=== PATIENT | male | born 1950 | race Caucasian/White ===

== ENCOUNTER 2022-08-30 11:06 | Day surgery (SDC) | payer OTHER, SELFPAY ==
[2022-08-30] MEDS: LACTATED RINGERS 1,000 ML 100 ML IV (12:42)
[2022-08-30 12:52] VITALS: BP 168/99; PULSE 105; RESP 18; TEMP 36.6; O2SAT 99; BMI 25.8
--- NOTE | 2022-08-30 13:30 | P.HP_ITS ---
History of Present Illness History of Present Illness Date Patient Seen: 08/30/22 Time Patient Seen: 13:30 Chief complaint: SDC Narrative: Marty is a 71-year-old man who is here for a colonoscopy. He has never had one before. No family history of colon cancer. [facility] Social History household members: spouse Smoking Status: Current some day smoker alcohol intake: current Meds Home Medications and Allergies Home Medications Medication Instructions Recorded Confirmed Type Baby Aspirin 81 mg DAILY 08/30/22 08/30/22 History amlodipine-benazepril 10 mg PO DAILY 08/30/22 08/30/22 History atorvastatin 0.4 mg PO DAILY 08/30/22 08/30/22 History lamotrigine 100 mg PO DAILY 08/30/22 08/30/22 History tamsulosin 0.4 mg PO DAILY 08/30/22 08/30/22 History Allergies Allergy/AdvReac Type Severity Reaction Status Date / Time No Known Drug Allergies Allergy Verified 08/30/22 12:22 Exam Vital Signs (past 8 hours): - 08/30/22 12:52 Temperature 98 F Pulse Rate 105 H Respiratory Rate 18 Blood Pressure 168/99 H Pulse Oximetry 99 Oxygen Delivery Method Room Air Oxygen Delivery Method Room Air Const General: healthy appearing Assessment & Plan Assessment and plan (1) Colon cancer screening: Status: Acute Plan We reviewed the risks and benefits of colonoscopy for colon cancer screening and he would like to proceed.
--- NOTE | 2022-08-30 13:53 | PM.OP.COLON ---
Operative Date/Time/Diagnoses Date of procedure: 08/30/22 Time of procedure: 13:53 Pre-op diagnosis: Colon cancer screening Post-op diagnosis: same Procedure & Clinicians Study performed: Colonoscopy Same procedure as scheduled: Yes Surgeon: Shoaib La Procedure Notes Procedure in detail: Surgeon: Shoaib La MD Anesthesia: Geronimo Cool CRNA Procedure: The patient was brought to the endoscopy suite, placed in left lateral decubitus position. The patient was connected to monitoring devices. A time-out was performed. Sedation was administered. Once the patient was adequately sedated, a digital rectal exam was performed and was normal. The scope was then inserted and advanced to the cecum where the appendiceal orifice was identified and photographed. The scope was then slowly withdrawn over greater than 6 minutes. The mucosa was thoroughly inspected. There were some scattered sigmoid diverticulosis but no polyps. The scope was retroflexed in the rectum. No other abnormalities were seen. The scope was straightened and removed. The patient was awakened and brought to recovery. Scope withdrawal time: 9 minutes Sedation time: 13 minutes EBL: 0 Findings: Scattered sigmoid diverticulosis Post-procedure Recommendations: Colonoscopy in 10 years Disposition: PACU
[2022-08-30 13:55] VITALS: BP 99/70; PULSE 77; RESP 14; TEMP 36.2; O2SAT 94
[2022-08-30 14:00] VITALS: BP 107/72; PULSE 76; RESP 12; O2SAT 94
--- NOTE | 2022-08-30 14:02 | SUR.PHASEI ---
Received to PACu after MAC. Report from LEONA Pino and IAIN Melton.
[2022-08-30 14:05] VITALS: BP 122/76; PULSE 70; RESP 12; O2SAT 96
[2022-08-30 14:10] VITALS: BP 140/95; PULSE 80; RESP 12; TEMP 36.7; O2SAT 99
[2022-08-30 14:11] VITALS: BP 161/94; PULSE 80; RESP 12; TEMP 36.7; O2SAT 99
== END 2022-08-30 14:20 | disposition home or self-care (01) ==
PROVIDERS: Referring Provider Surgery; Visit Provider Surgery
PROC: 0DJD8ZZ Inspection of Lower Intestinal Tract, Via Natural or Artificial Opening Endoscopic (ICD-10-PCS; CPT 45378; principal; 2022-08-30 12:45)
DX: Z12.11 Encounter for screening for malignant neoplasm of colon (principal); K57.30 Diverticulosis of large intestine without perforation or abscess without bleeding
CPT/HCPCS: G0121; J2704

== ENCOUNTER → 2023-07-23 14:51 | Outpatient (CLI) | payer MEDICARE, SELFPAY ==
[2023-07-23 15:30] LABS: Hematocrit 38.7 % (41-53); Hemoglobin 12.8 g/dL (13.5-17.5); Mean Corpuscular HGB Conc 33.1 % (30-36); Mean Corpuscular Hemoglobin 30.4 PG (26-34); Mean Corpuscular Volume 91.6 fL (80-100); Platelet Count 202 X10^3/uL (150-400); Red Blood Cell Count 4.22 X10^6/uL (4.5-5.9); Red Cell Distribution Width 14.1 % (11.6-14.8); White Blood Cell Count 9.1 X10^3/uL (4.5-11.0)
[2023-07-23 19:23] LABS: Alanine Aminotransferase 18 IU/L (<50); Albumin 4.2 g/dL (3.5-5.0); Albumin Globulin Ratio 1.4 (1.0-2.8); Alkaline Phosphatase 68 U/L (38-126); Aspartate Aminotransferase 21 IU/L (17-59); BUN Creatinine Ratio 21.6 (6-22); Bilirubin Total 0.4 mg/dL (0.2-1.3); Blood Urea Nitrogen 25 mg/dL (9-20); Calcium 9.4 mg/dL (8.4-10.2); Carbon Dioxide 27 mmol/L (22-32); Chloride 109 mmol/L (98-107); Cholesterol 140 mg/dL (140-199); Estimated Glomerular Filt Rate > 60 mL/min (>60); Globulin 3.1 g/dL (1.7-4.1); Glucose 96 mg/dL (80-110); HDL Cholesterol 67 mg/dL (40-60); HEMOLYSIS < 15 (0-50); LDL Cholesterol Calculated 51 mg/dL (<100); Potassium 3.9 mmol/L (3.4-5.1); Sodium 140 mmol/L (137-145); Total Protein 7.3 g/dL (6.3-8.2); Triglycerides 110 mg/dL (35-150)
[2023-07-23 19:26] LABS: High Sensitivity CRP - Cardiac 4.4 mg/L (1.0-3.0)
[2023-07-23 19:54] LABS: Prostate Specific Antigen Scrn 4.13 ng/mL (0.1-4.0)
[2023-07-27 08:46] LABS: PSA Free % 25.4 % (.); PSA, Total 3.5 ng/mL (0.0-4.0)
== END ==
LOC: LAB 14:52
PROVIDERS: PCP Family Medicine; Referring Provider Family Medicine; Visit Provider Family Medicine
DX: Z12.5 Encounter for screening for malignant neoplasm of prostate (principal); E78.5 Hyperlipidemia, unspecified; I69.398 Other sequelae of cerebral infarction; N40.1 Benign prostatic hyperplasia with lower urinary tract symptoms; N13.8 Other obstructive and reflux uropathy; G40.909 Epilepsy, unspecified, not intractable, without status epilepticus; I00-I99 Diseases of the circulatory system; I10 Essential (primary) hypertension; R41.4 Neurologic neglect syndrome
CPT/HCPCS: 80053; 80061; 84153; 84154; 85027; 86140; G0103

== ENCOUNTER 2023-10-04 12:04 | Emergency (ER) | payer MEDICARE, SELFPAY ==
[2023-10-04] VITALS (7 sets, daily range): BP systolic 107–122; BP diastolic 56–67; PULSE 73–95; RESP 18–20; TEMP 36.6–37.6; O2SAT 94–98; BMI 25.8
--- NOTE | 2023-10-04 12:12 | ED.FALL ---
HPI - Fall <Solo Strauss PA-C - Last Filed: 10/04/23 15:55> General Chief Complaint: Fall Stated Complaint: fall/hit head with laceration no thinners Time Seen by Provider: 10/04/23 12:12 Source: patient Mode of arrival: EMS History of Present Illness HPI Narrative: This is a 72-year-old male presents to the emergency department due to a mechanical ground level fall. Patient was hoping to avoid a ditch when his right foot caught causing him to fall and hit his head on the ground. He had not lose conscious. He was not on blood thinners. 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 He denies any injuries to his extremities, abdomen, chest, pelvis area. Only complaining of a laceration above his right eyebrow. His tetanus is up-to-date. Related Data Home Medications Medication Instructions Recorded Confirmed aspirin 81 mg tablet,delayed 81 mg PO DAILY 02/18/23 08/14/23 release cholecalciferol (vitamin D3) 25 25 mcg PO DAILY 02/18/23 08/14/23 mcg (1,000 unit) capsule Previous Rx's Medication Instructions Recorded amlodipine 10 mg-benazepril 20 mg 1 cap PO DAILY #90 caps 05/21/23 capsule metoprolol succinate 100 mg 100 mg PO DAILY #90 tabs 05/21/23 tablet,extended release 24 hr atorvastatin 40 mg tablet 40 mg PO DAILY #90 tabs 07/29/23 chlorthalidone 25 mg tablet 12.5 mg (1/2 x 25 mg) PO DAILY #45 07/29/23 tabs lamotrigine 100 mg tablet 100 mg PO BID #180 tabs 07/29/23 tamsulosin 0.4 mg capsule 0.4 mg PO DAILY #90 caps 07/29/23 trazodone 50 mg tablet 50 mg PO BEDTIME #90 tabs 07/29/23 Allergies Allergy/AdvReac Type Severity Reaction Status Date / Time No Known Drug Allergies Allergy Verified 10/04/23 12:11 Review of Systems <Solo Strauss PA-C - Last Filed: 10/04/23 15:55> Review of Systems Narrative: GENERAL: Denies chills, fatigue, malaise, fever, sweats. HEENT: Denies sinus pain, ear pain, sore throat, difficulty swallowing, dizziness. RESPIRATORY: Denies dyspnea, cough, wheezing, hemoptysis, sputum. CARDIOVASCULAR: Denies chest pain, palpitations, orthopnea, edema, GASTROINTESTINAL: Denies nausea, vomiting, abdominal pain, diarrhea, constipation, melena. : Denies dysuria, frequency, incontinence, hematuria, urinary retention. MUSCULOSKELETAL: denies weakness, joint pain, or bony pain SKIN: Reports laceration to right forehead NEUROLOGIC: Denies weakness, headache, numbness, change in speech, confusion, seizures, incoordination. PSYCHIATRIC: No concerning psychosocial issues. 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 HEAD: Atraumatic. Normocephalic. EYES: Pupils equal round and reactive. Extraocular motions intact. No scleral icterus. No injection or drainage. ENT: Nose without bleeding, purulent drainage. Throat without erythema, tonsillar hypertrophy or exudate. Airway patent. NECK: Trachea midline. Non tender EXTREMITIES: No edema or joint tenderness. NEURO: AOx3. Cranial nerves 2-12 intact. Some weakness noted with plantar flexion of the left foot which the patient states it is chronic for him. SKIN: Approximately 6 cm cm laceration to the right forehead area. Minimal oozing bleeding. No surrounding bony tenderness to palpation. CARDIOVASCULAR: Regular rate and rhythm without murmurs, gallops, or rubs. RESPIRATORY: Clear to auscultation. Breath sounds equal bilaterally. No wheezes, rales, or rhonchi. GASTROINTESTINAL: Abdomen soft, non-tender, nondistended. BACK: Nontender without deformity or crepitance. No flank tenderness. Initial Vital Signs Initial Vital Signs: Vital Signs Temperature 99.6 F 10/04/23 12:04 Pulse Rate 95 H 10/04/23 12:04 Respiratory Rate 18 10/04/23 12:04 Blood Pressure 107/67 10/04/23 12:04 Pulse Oximetry 95 10/04/23 12:04 Oxygen Delivery Method Room Air 10/04/23 12:04 <She Mead DO - Last Filed: 10/05/23 10:18> Initial Vital Signs Initial Vital Signs: Vital Signs Temperature 99.6 F 10/04/23 12:04 Pulse Rate 95 H 10/04/23 12:04 Respiratory Rate 18 10/04/23 12:04 Blood Pressure 107/67 10/04/23 12:04 Pulse Oximetry 95 10/04/23 12:04 Oxygen Delivery Method Room Air 10/04/23 12:04 Procedures <RICHAR Akins Last Filed: 10/04/23 15:55> Laceration Repair Laceration 1: Time of procedure: 13:48 Site: face Size (cm): 6 Description: linear Depth: simple, single layer Local Anesthetic: lidocaine 1% and with epi Amount of anesthesia used (mL): 6 Pre-repair: irrigated extensively Skin layer closed with: nylon Skin layer suture size: 6-0 Number of sutures: 8 Technique: simple, interrupted Course <RICHAR Akins Last Filed: 10/04/23 15:55> Orders Ordered: Discontinued Medications Lidocaine/Epinephrine (Lidocaine 1% W/Epi) 4 ml INJ INTRA-OP ONE Stop: 10/04/23 12:48 Last Admin: 10/04/23 13:09 Dose: 4 ml Documented By: TARIQ Vital Signs Vital signs: Vital Signs - 8 hr 10/04/23 12:04 10/04/23 12:06 10/04/23 12:06 Temperature 99.6 F Pulse Rate 95 H 94 H Respiratory Rate 18 Blood Pressure 107/67 107/67 Pulse Oximetry 95 95 Oxygen Delivery Method Room Air 10/04/23 12:30 10/04/23 12:30 10/04/23 13:00 Temperature Pulse Rate 91 H 79 Respiratory Rate Blood Pressure 116/56 L Pulse Oximetry 94 94 Oxygen Delivery Method 10/04/23 13:00 10/04/23 13:30 10/04/23 14:00 Temperature Pulse Rate 73 73 Respiratory Rate Blood Pressure 122/66 Pulse Oximetry 95 95 Oxygen Delivery Method <She Mead DO - Last Filed: 10/05/23 10:18> Orders Ordered: Discontinued Medications Lidocaine/Epinephrine (Lidocaine 1% W/Epi) 4 ml INJ INTRA-OP ONE Stop: 10/04/23 12:48 Last Admin: 10/04/23 13:09 Dose: 4 ml Documented By: TARIQ Vital Signs Vital signs: Vital Signs - 8 hr 10/04/23 12:04 10/04/23 12:06 10/04/23 12:06 Temperature 99.6 F Pulse Rate 95 H 94 H Respiratory Rate 18 Blood Pressure 107/67 107/67 Pulse Oximetry 95 95 Oxygen Delivery Method Room Air 10/04/23 12:30 10/04/23 12:30 10/04/23 13:00 Temperature Pulse Rate 91 H 79 Respiratory Rate Blood Pressure 116/56 L Pulse Oximetry 94 94 Oxygen Delivery Method 10/04/23 13:00 10/04/23 13:30 10/04/23 14:00 Temperature Pulse Rate 73 73 Respiratory Rate Blood Pressure 122/66 Pulse Oximetry 95 95 Oxygen Delivery Method MDM - Fall <Solo Strauss PA-C - Last Filed: 10/04/23 15:55> Imaging Data CT - cervical spine: Radiologist's Impression: [place] [address] CT Scan Report Signed Patient: Marty Sepulveda MR#: [id number] : 1950 Acct:[id number] Age/Sex: 72 / M Date of Service: 10/04/23 Loc: ED Accession Number: [id number] Procedure: CT cervical spine wo con Ordering Provider: Solo Strauss P.A-C PROCEDURE: CT CERVICAL SPINE WO CON INDICATIONS: GLF TECHNIQUE: Noncontrast 3 mm thick sections acquired from the skull base to the T4 level. Sagittal and coronal reformats were then constructed. For radiation dose reduction, the following was used: automated exposure control, adjustment of mA and/or kV according to patient size. COMPARISON: None. FINDINGS: Image quality: Excellent. Bones: No cervical fractures or dislocations. Probable acute mild T3 compression fracture. Old mild T4 compression fracture. Question very subtle acute T2 compression fracture. Visualized superior ribs are intact. Cervical spondylosis. This is centered at C3-C4 through C5-C6. Soft tissues: Prevertebral soft tissues are normal in thickness. No paravertebral hematomas. No apical pneumothoraces. IMPRESSION: 1. No acute cervical fracture or dislocation. 2. Probable acute mild superior endplate compression of T3. Question very subtle superior endplate compression of T2. Old mild T4 compression fracture. Comment: Consider nonemergent MRI to include the upper thoracic region to evaluate fracture acuity. Dictated by: Josemanuel Tanner M.D. on 10/04/2023 at 13:51 Approved by: Josemanuel Tanner M.D. on 10/04/2023 at 13:[address] : Radiologist's Impression: [address] [address] [address] Scan Report Signed Patient: Marty Sepulveda MR#: [id number] : 1950 Acct:[id number] Age/Sex: 72 / M Date of Service: 10/04/23 Loc: ED Accession Number: [id number] Procedure: CT facial bones wo con Ordering Provider: Solo Strauss P.A-C PROCEDURE: CT FACIAL BONES WO CON INDICATIONS: GLF facial injury TECHNIQUE: Noncontrast 2.5 mm thick axial images acquired from the mandible through the frontal sinuses, with coronal and sagittal reformatting. For radiation dose reduction, the following was used: automated exposure control, adjustment of mA and/or kV according to patient size. COMPARISON: None. FINDINGS: Image quality: Excellent. Bones and teeth: Question blowout fracture of the medial wall of the right orbit. This is suspected based on a possible displaced tiny bony fragment seen on image 75/2. There is subtotal opacification of the right maxillary sinus with mixed density contents. Findings may represent chronic disease or opacification related to acute trauma. Additionally, there is thinning and bowing and interval right you will area of the medial wall of the right maxillary sinus which may be a chronic finding or may potentially represent acute medial wall fracture. There are nasal bone fractures which are of uncertain chronicity. Visualized portions of the mandible demonstrate no fractures or subluxation. Zygomatic arches are intact. Pterygoid plates are intact. Visualized portions of the skull base and auditory canals are intact. Sinuses: Subtotal opacification of the right maxillary sinus with bowing of contents into the right nasal fossa. This may potentially represent a chronic process or may potentially represent acute fracture involving the medial wall of the right maxillary sinus. Mastoid air cells are aerated. Soft tissues: No edema, masses, or fluid collections. No enlarged lymph nodes. No soft tissue lacerations or debris. Vascular: Visualized vascular structures appear normal in the absence of contrast. Bony vascular foramina and canals are intact. IMPRESSION: 1. Process in the right maxillary sinus may simply be chronic sinus disease, or may be related to an acute process secondary to trauma. 2. There is a question of a focal medial wall right orbital fracture. There is also either medial wall right maxillary sinus fracture or chronic changes from sinus disease. 3. Nasal bone fractures are of uncertain chronicity. Dictated by: Josemanuel Tanner M.D. on 10/04/2023 at 14:02 Approved by: Josemanuel Tanner M.D. on 10/04/2023 at 14:06 CT scan - head: Radiologist's Impression: [place] [address] CT Scan Report Signed Patient: Marty Sepulveda MR#: [id number] : 1950 Acct:[id number] Age/Sex: 72 / M Date of Service: 10/04/23 Loc: ED Accession Number: [id number] Procedure: CT head/brain wo con Ordering Provider: Solo Strauss P.A-C PROCEDURE: CT HEAD/BRAIN WO CON INDICATIONS: GLF and head injury TECHNIQUE: Noncontrast 4.5 mm thick angled axial sections acquired from the foramen magnum to the vertex, with coronal and sagittal reformats. For radiation dose reduction, the following was used: automated exposure control, adjustment of mA and/or kV according to patient size. COMPARISON: [facility], CT, CT FACIAL BONES WO CON, 10/04/2023, 13:13. [facility], CT, CT CERVICAL SPINE WO CON, 10/04/2023, 13:13. FINDINGS: Image quality: Diagnostic. CSF spaces: Basal cisterns are patent. No extra-axial fluid collections. The ventricles are symmetric in size and shape. Brain: No intracranial bleeds or masses. There is cerebral volume loss for age, with resultant ventricular and sulcal prominence. There are periventricular and deep white matter chronic small vessel ischemic changes. Old at least moderate sized right MCA distribution infarct with encephalomalacia. Small focal anterior left MCA distribution frontal infarct with encephalomalacia. There is intracranial internal carotid artery atherosclerosis. Skull and face: Remote right frontal temporal craniotomy.. No calvarial fractures. Near complete opacification of the right maxillary sinus. There is some mixed contents, potentially partially hemorrhagic. On the accompanying CT maxillofacial areas there is a suggestion of a possible medial wall right orbital fracture as well as potential medial wall right maxillary sinus fracture. There also tip of nasal bone fractures. The tip of nasal bone fractures may be chronic. Sinuses: Subtotal opacification of the right maxillary sinus with mixed density contents.. IMPRESSION: 1. Old at least moderate sized right MCA distribution infarct and old small left MCA distribution infarct. 2. No acute intracranial process. 3. Subtotal opacification of the right maxillary sinus. 4. Question blowout fracture of the medial wall of the right orbit as well as a fracture of the medial wall of the right maxillary sinus. 5. Nasal bone fractures may be old. Dictated by: Josemanuel Tanner M.D. on 10/04/2023 at 13:56 Approved by: Josemanuel Tanner M.D. on 10/04/2023 at 14:02 [facility] Narrative Medical decision making narrative: ED course: This is a 72-year-old male presents to the emergency department due to a mechanical ground level fall. He had a laceration to his forehead which he was closed without complications. Recommend he follow up his primary care provider in 7-10 days for removal. He was also noted to have a maxillary sinus as well as orbital fracture on facial CT. This was discussed with OMFS who recommended sinus precautions, head of bed elevation to at least 30?, as well as follow up with them in 2 weeks. They will call him to schedule an appointment. CT C-spine showed a endplate compression fracture at T3 which I recommended he follow up with the primary care provider regarding, no acute intervention is needed. CT brain otherwise unremarkable for new acute findings. Recommended Tylenol for pain control. CC: Facial pain Complicating co-morbidities: History of cerebral aneurysm in 2014 as below Data collected from: Previous notes Medical records reviewed: Patient was not been to this emergency department the past. Per primary care note history of cerebral aneurysm in 2015. Persistent left-sided difficulty as well as numbness to the left leg, ankle, hip, history of hypertension. Does not take blood thinners. Denies any loss of conscious. Tetanus is up-to-date. Differential considered, but not limited to: Fracture, intracranial bleed Exam documented above, pertinent findings include: No signs of entrapment with ocular exam, no vision changes, no new neuro changes Lab Test results independently reviewed as above. Pertinent findings: None obtained Imaging studies independently reviewed: As above Scores Used: None MIPS Elements: None Consultations: None Treatments: Laceration repair Re-evaluations: None Discussion: Discussed plan with the patient was comfortable with the plan Diagnosis: Laceration, facial bone fracture, T3 fracture Disposition: see below, along with detailed discharge instructions that have been reviewed with patient as well as indications for ED re-evaluation and additional outpatient follow up Discharge Plan Departure Patient Disposition: Home Clinical Impression: Laceration, Facial fracture, Closed T3 fracture Activity Restrictions/Additional Instructions: Thank you for coming to the [facility] Emergency Department today. As we discussed please follow up with the your primary care provider in 7-10 days for suture removal. The face CT showed multiple fractures of the facial bones in the right side of your face. Please follow the sinus precautions below. I also recommend head of bed elevation at 30? at minimum. [facility] plastic surgery clinic will call you to arrange for follow up. You also have a small fracture to the T3 vertebrae. There is no operative needs for this but please follow up with the primary care provider for further follow up. Please use Tylenol as needed for the pain. The brain CT showed no evidence of any new bleeding. Please return to the emergency department if you develop any vision changes, weakness, or any other concerning signs or symptoms. I hope you feel better soon. Please follow up with your primary care provider within a week if your symptoms continue. If you do not have a primary care provider please contact the [facility] Resource line at [phone]. They will ask some questions about your medical history and help you get set up with a provider in the community. Do not blow your nose! If you have a runny nose, wipe your nose gently. ? Try to avoid sneezing. If you do sneeze, sneeze with your mouth open to avoid pressure build up. ? Do not use a straw. ? Avoid bending over ? try to keep your head above the level of your heart. ? Sleep with your head slightly raised. ? Do not strain by pushing or lifting heavy objects. ? Avoid the following activities: o Swimming o Scuba diving o Playing a wind instrument o Blowing up balloons, or other things that cause pressure changes Prescriptions: No Action amlodipine-benazepril 10-20 mg capsule 1 cap PO DAILY Qty: 90 3RF metoprolol succinate 100 mg tablet extended release 24 hr 100 mg PO DAILY Qty: 90 3RF atorvastatin 40 mg tablet 40 mg PO DAILY Qty: 90 3RF chlorthalidone 25 mg tablet 12.5 mg PO DAILY Qty: 45 3RF lamotrigine 100 mg tablet 100 mg PO BID Qty: 180 3RF tamsulosin 0.4 mg capsule 0.4 mg PO DAILY Qty: 90 3RF trazodone 50 mg tablet 50 mg PO BEDTIME Qty: 90 3RF cholecalciferol (vitamin D3) 25 mcg (1,000 unit) capsule 25 mcg PO DAILY aspirin 81 mg tablet,delayed release (DR/EC) 81 mg PO DAILY Referrals: Hoa Barry DO [Primary Care Provider] - Stand Alone Forms: Patient Portal/API ED Sign-out <She Mead DO - Last Filed: 10/05/23 10:18> Cosign ED Attending Cristi Attestation: I was immediately available in the department for consultation. Case was discussed images were reviewed consultation with OMFS/Ophthalmology patient we will follow up with [facility]. This has been arranged.
--- NOTE | 2023-10-04 12:46 | DI.CT.S_ITS ---
PROCEDURE: CT HEAD/BRAIN WO CON INDICATIONS: GLF and head injury TECHNIQUE: Noncontrast 4.5 mm thick angled axial sections acquired from the foramen magnum to the vertex, with coronal and sagittal reformats. For radiation dose reduction, the following was used: automated exposure control, adjustment of mA and/or kV according to patient size. COMPARISON: [facility], CT, CT FACIAL BONES WO CON, 10/04/2023, 13:13. [facility], CT, CT CERVICAL SPINE WO CON, 10/04/2023, 13:13. FINDINGS: Image quality: Diagnostic. CSF spaces: Basal cisterns are patent. No extra-axial fluid collections. The ventricles are symmetric in size and shape. Brain: No intracranial bleeds or masses. There is cerebral volume loss for age, with resultant ventricular and sulcal prominence. There are periventricular and deep white matter chronic small vessel ischemic changes. Old at least moderate sized right MCA distribution infarct with encephalomalacia. Small focal anterior left MCA distribution frontal infarct with encephalomalacia. There is intracranial internal carotid artery atherosclerosis. Skull and face: Remote right frontal temporal craniotomy.. No calvarial fractures. Near complete opacification of the right maxillary sinus. There is some mixed contents, potentially partially hemorrhagic. On the accompanying CT maxillofacial areas there is a suggestion of a possible medial wall right orbital fracture as well as potential medial wall right maxillary sinus fracture. There also tip of nasal bone fractures. The tip of nasal bone fractures may be chronic. Sinuses: Subtotal opacification of the right maxillary sinus with mixed density contents.. IMPRESSION: 1. Old at least moderate sized right MCA distribution infarct and old small left MCA distribution infarct. 2. No acute intracranial process. 3. Subtotal opacification of the right maxillary sinus. 4. Question blowout fracture of the medial wall of the right orbit as well as a fracture of the medial wall of the right maxillary sinus. 5. Nasal bone fractures may be old. Dictated by: Josemanuel Tanner M.D. on 10/04/2023 at 13:56 Approved by: Josemanuel Tanner M.D. on 10/04/2023 at 14:02
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
[2023-10-04] MEDS: LIDOCAINE 1% W/EPI 4 ML INJ (13:09)
== END 2023-10-04 16:01 | disposition home or self-care (01) ==
PROVIDERS: Emergency Provider Physician Assistant Medical; PCP Family Medicine
DX: S02.831A Fracture of medial orbital wall, right side, initial encounter for closed fracture (principal); S01.111A Laceration without foreign body of right eyelid and periocular area, initial encounter; S22.039A Unspecified fracture of third thoracic vertebra, initial encounter for closed fracture; W18.30XA Fall on same level, unspecified, initial encounter; Z79.899 Other long term (current) drug therapy
CPT/HCPCS: 12002; 70450; 70486; 72125; 99282; 99284